=== PATIENT | female | born 1965 | race Caucasian/White ===

== ENCOUNTER 2019-09-15 12:13 | Inpatient (IN) | payer OTHER, SELFPAY ==
[2019-09-15] VITALS (10 sets, daily range): BP systolic 118–153; BP diastolic 64–86; PULSE 86–98; RESP 16–21; TEMP 36.4–36.9; O2SAT 90–99; BMI 39.0
--- NOTE | ~2019-09-15 | CT_ITS ---
EXAMINATION: CTA chest PE protocol DATE: 09/17/2019 10:50 INDICATION: Emphysema and COPD TECHNIQUE: Computed tomography angiography (CTA) of the chest was performed with 100 mL Omnipaque-350 intravenous contrast timed to evaluate the pulmonary arteries. Coronal maximum intensity projection 3D-reconstructions were created by the technologist. The dose-length product (DLP) was 621.26 mGy-cm. Automated exposure control and iterative reconstruction technique were employed. COMPARISON: 09/15/2019 FINDINGS: The pulmonary arteries are well-opacified. No pulmonary embolism is identified. There is mi ld emphysema. No focal airspace opacities are identified. There is dependent atelectasis. A calcified nodule of the left lung is consistent with old granulomatous disease. No pathologically enlarged tho racic lymph nodes are identified. The heart size is normal. There is mild thoracic spondylosis. IMPRESSION: 1. No pulmonary embolism or acute cardiopulmonary abnormality. Reviewed, dictated and finalized at location A. OR BUSINESS ANALYST
--- NOTE | ~2019-09-15 | XR_ITS ---
EXAMINATION: XR chest 2V EXAM DATE: 09/15/2019 12:48 INDICATION: Shortness of breath, upper back pain. Symptoms one month. TECHNIQUE: Frontal and lateral projections of the chest obtained and reviewed. Comparison is made to prior examination from 06/11/2018. FINDINGS: The lungs are clear. There are no pleural effusions. The cardiomediastinal silhouette is within normal limits. There is no pneumothorax suspected. The bones and soft tissues are unremarkab le. IMPRESSION: Normal chest x-ray exam. Reviewed, dictated and finalized at location B. S INSPECTOR IMPRESSION: Normal chest x-ray exam.
--- NOTE | ~2019-09-15 | CT_ITS ---
EXAMINATION:CT chest w con DATE: 09/15/2019 15:58 INDICATION: Shortness of breath. Back pain. TECHNIQUE: Computed tomography (CT) of the chest was performed with 75 mL Omnipaque 350 intravenous c ontrast. Automated exposure control and iterative reconstruction technique were employed. The dose-le ngth product (DLP) was 408.27 mGy-cm. COMPARISON: Chest CT 09/27/2009 FINDINGS: There is mild emphysema. There is mild dependent atelectasis bilaterally. A calcified left lung nodule is consistent with old granulomatous disease. No pleural effusion. The heart size is norm al. No pericardial effusion. There is mild aortic atherosclerosis. There is mild thoracic spondylosis . IMPRESSION: 1. Mild emphysema. Reviewed, dictated and finalized at location A. DOZER OPERATOR IMPRESSION: 1. Mild emphysema.
--- NOTE | 2019-09-15 12:19 | ECG_ITS ---
Measurements Intervals [place] Rate: 91 P: 12 TX: 152 QRS: 22 QRSD: 100 T: 8 QT: 362 QTc: 446 Interpretive Statements SINUS RHYTHM DELAYED PRECORDIAL R/S TRANSITION CONSIDER INFERIOR INFARCT, AGE INDETERMINATE BASELINE ARTIFACT- I, III, AVL, V1 ABNORMAL ECG Electronically Signed On 09-15-2019 16:03:23 WORKERS COMPENSATION CLAIMS ASSISTANT by Alonso Naik D.O.
--- NOTE | 2019-09-15 12:25 | PC.NURSE ---
BS 82.
[2019-09-15 12:26] LABS: Glucose Point of Care 82 (65-105)
[2019-09-15 12:35] LABS: Basophils Absolute Auto 0.1 K/mm3 (0.0-0.1); Basophils Percent Auto 0.6 % (0.2-1.2); Eosinophils Absolute Auto 0.4 K/mm3 (0-0.3); Eosinophils Percent Auto 3.6 % (0-4.4); Hematocrit 36.6 % (37.0-47.0); Hemoglobin 11.6 g/dL (12.0-15.0); Immature Granulocyte Absolute 0.05 K/mm3 (0.00-0.031); Immature Granulocyte Percent A 0.5 % (0-0.5); Lymphocytes Absolute Auto 4.52 K/mm3 (0.9-3.2); Lymphocytes Percent Auto 41.1 % (18.3-44.2); Mean Corpuscular HGB Conc 31.7 g/dl (32-36); Mean Corpuscular Hemoglobin 25.1 pg (26-34); Mean Corpuscular Volume 79.2 fl (80-100); Mean Platelet Volume 9.9 fl (7.4-10.4); Monocytes Absolute Auto 1.3 K/mm3 (0.1-0.6); Monocytes Percent Auto 12.2 % (2.6-8.5); Neutrophils Absolute Auto 4.6 K/mm3 (1.3-6.7); Platelet Count Result 279 k/mm3 (150-375); Red Blood Count 4.62 M/mm3 (4.2-5.4); Red Cell Distribution Width 16.1 % (11.5-14.5)
--- NOTE | 2019-09-15 12:36 | ED.GENADULT ---
HPI - General Adult General Chief complaint: Shortness of Breath/Dyspnea Stated complaint: SOB Time Seen by Provider: 09/15/19 12:23 Source: patient Mode of arrival: EMS Limitations: no limitations History of Present Illness HPI narrative: The pt is a 53 y/o female who presents to the ED, via EMS, with c/o SOB that began about 1 month ago and worsened today. The pt states that she went to see her doctor for ongoing upper back pain yesterday. She was told that she may have pneumonia or a pneumothorax and was prescribed Tramadol and Benzonatate. Her doctor ordered a XR to be done here this afternoon, but the pt came to the ED from work because she was having difficulty breathing. The pt reports sweats, upper back pain, nausea, and vomiting. She states that she has vomited once today. She is not on home O2, does not smoke, and drinks occasionally. She has a PMHx of DM, HTN, HLD, and TIA. The pt is takes ASA after her TIA. MD complaint: SOB Onset (ago): month(s) (began 1 month ago and worsened today) Associated symptoms: other (sweats, upper back pain, nausea, vomiting) Treatments prior to arrival: other (Tramadol, Benzonatate) Related Data Home Medications Medication Instructions Recorded Confirmed alprazolam 2 mg PO HS 09/15/19 09/22/19 aspirin 325 mg PO DAILY 09/15/19 09/22/19 escitalopram oxalate 10 mg PO DAILY 09/15/19 09/22/19 indapamide 2.5 mg PO DAILY 09/15/19 09/22/19 insulin lispro [Humalog U-100 1 unit SUBCUT 6XD 09/15/19 09/22/19 Insulin] losartan 100 mg PO DAILY 09/15/19 09/22/19 metformin 1,000 mg PO BID 09/15/19 09/22/19 pantoprazole 40 mg PO DAILY 09/15/19 09/22/19 Allergies Allergy/AdvReac Type Severity Reaction Status Date / Time meperidine Allergy Severe allergic Verified 09/22/19 09:26 shock Review of Systems Review of Systems: All systems reviewed & are unremarkable except as noted in HPI and below Cardiovascular: Cardiovascular: Reports chest pain and Reports other (sweats) Gastrointestinal: Gastrointestinal: Reports nausea and Reports vomiting Musculoskeletal: Musculoskeletal: Reports back pain (upper) PMFSH Past Medical History Medical History (Updated 09/22/19 @ 07:10 by Chad Ortega APN) Anemia Anxiety COPD with emphysema Coronary artery disease cardiac catheterization 2010 demonstrated mild nonocclusive coronary artery disease Depression Diabetes GERD (gastroesophageal reflux disease) Hyperlipidemia Hypertension Hypothyroid Obesity (BMI 30-39.9) Obstructive sleep apnea TIA (transient ischemic attack) Surgical History Surgical History (Updated 09/15/19 @ 22:43 by Karin Watson DO) History of cardiac cath History of cardiac radiofrequency ablation due to paroxysmal atrial tachycardia in 2000 Family History Family History (Updated 09/15/19 @ 22:43 by Karin Watson DO) Mother History of blood clots Congestive heart failure Diabetes mellitus Father Congestive heart failure Diabetes mellitus Prostate carcinoma Bone cancer Sibling Diabetes mellitus Breast cancer sister Social History Social History (Updated 09/15/19 @ 23:59 by Karin Watson DO) Social History: Code status: Full code. Patient does not have advanced directives. Primary care physician: Dr. Howard Gallego Smoking packs per day: 1 Smoking cigarettes per day: 20.0 Years smoked: 25 Smoking pack-years: 25.00 Smoking status: Former smoker Tobacco type: cigarettes Additional smoking assessment comments: Quit in approximately 2008. Alcohol intake: current Substance use: never Additional living arrangements comments: She lives in [place] with her . 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 Gender identity (if verbalized by the patient): Female Spiritual care concerns: Yes (Congregation) Agree to blood products: Yes Exam Narrative: Exam Narrativ
[2019-09-15 12:45] LABS: Prothrombin Time 12.4 Seconds (11.1-14.7)
[2019-09-15 12:46] LABS: Partial Thromboplastin Time 30.5 SECONDS (22.3-36.8)
[2019-09-15 12:48] LABS: Alanine Aminotransferase 35 U/L (4-35); Albumin Level 4.5 g/dL (3.5-5.1); Alkaline Phosphatase 74 U/L (38-126); Aspartate Amino Transferase 49 U/L (14-36); Bilirubin,Total 0.4 mg/dL (0.2-1.3); Blood Urea Nitrogen 14 mg/dL (7-17); Calcium 9.3 mg/dL (8.4-10.2); Carbon Dioxide 29 mmol/L (22-30); Chloride 98 mmol/L (98-107); D Dimer 0.42 ug/mL (<0.48); Estimated CRCL calculation 127 ml/min; Estimated Glomerular Filt Rate > 60; Glucose 97 mg/dL (65-105); Potassium 3.1 mmol/L (3.4-5.0); Sodium 141 mmol/L (137-145)
[2019-09-15 13:18] LABS: Alveolar/Arterial O2 Gradient 80.5 mmHg; Base Excess ABG 2.5 mEq/l (+/-2.0); Fractional Inspired Oxygen 28 %; HCO3 ABG 27.6 mEq/l (22.0-26.0); Oxygen Content ABG 15.8 %vol (16.0-22.0); Oxygen Saturation ABG 93.2 % (95.0-100.0); Oxyhemoglobin 91.8 % THb (90.0-100.0); PCO2 ABG 44.7 mmHg (35.0-45.0); PO2 ABG 66.4 mmHg (80.0-100.0); PO2 FiO2 Ratio Arterial Blood 2.37 %; Site Drawn LEFT BRACHIAL; Total Hemoglobin 12.2 g/dL (12.0-18.0); pH ABG 7.409 (7.350-7.450)
[2019-09-15 13:19] LABS: Device NASAL CANNULA
--- NOTE | 2019-09-15 15:52 | PC.NURSE ---
PT TO CT SCAN VIA STRETCHER.
[2019-09-15] MEDS: POTASSIUM CHLORIDE 20 MEQ TABLET 40 MEQ PO (16:04)
--- NOTE | 2019-09-15 17:32 | ADMGEN ---
This patient, Susan Stroud, was admitted to Medical Room 345-. Patient/family oriented to hospital policies and general routines including ID bracelet, bed and alarms, visiting hours, pain management, procedures, bathroom and other care routines, personal items, smoking policy, room service/diet, and visiting hours. Valuables list has been completed. Information on how to activate the Rapid Response Team has been discussed. Patient/Family are encouraged to report perceived risks to care and to ask questions if they do not understand what they are told or what they should do.
[2019-09-15] MEDS: methylPREDNISolone SOD SUCC 125 MG VIAL 60 MG IV PUSH (18:48)
[2019-09-15 21:16] LABS: Glucose Point of Care 225 (65-105)
[2019-09-15] MEDS: IPRATROPIUM BR 0.02% INH SOLN 0.5 MG/2.5 ML VIAL INHALATION (21:40)
[2019-09-15] MEDS: ALBUTEROL SULFATE NEB 2.5 MG/0.5 ML INH 5 MG INHALATION (21:41)
--- NOTE | 2019-09-15 22:37 | PM.IMHP ---
H&P: HPI History of Present Illness Chief complaint: shortness of breath Narrative: date and time of patient contact: 09/15/2019 at 10:30 p.m. Susan Stroud is a 53 year old female with a past medical history of type 2 diabetes, hypertension, GERD, and emphysema who presented to the ER via EMS due to sudden worsening of shortness of breath. The patient reports that she has been having pain between her shoulder blades that is worse with deep breathing on and off for the last 2 or 3 weeks. She has had an intermittent dry cough for the last week or so. Over the last several days she has had low-grade temperatures around 99?. She reports generalized body aches for the last several days. She has had postnasal drip but denies any nasal congestion. She had 1 episode of emesis today prior to calling EMS. 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 She has been told before that she has COPD but has never had pulmonary function testing. She has had emphysematous changes noted on her CT scan for several years. She quit smoking around 2002. 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 She denies any bowel or bladder changes. She has been having intermittent headaches. She does have obstructive sleep apnea and had recent sleep study. The patient has black spots in her vision of 1 eye. It is not due to diabetic retinopathy per her report. She is being followed by ophthalmology as outpatient. Review of Systems Review of Systems: Narrative: Except as documented in the HPI, all other systems were reviewed and are negative. [facility] Past Medical History Medical History (Updated 09/16/19 @ 00:04 by Karin Watson DO) Anemia Anxiety COPD with emphysema Coronary artery disease cardiac catheterization 2010 demonstrated mild nonocclusive coronary artery disease Depression Diabetes GERD (gastroesophageal reflux disease) Hyperlipidemia Hypertension Hypothyroid Obesity (BMI 30-39.9) Obstructive sleep apnea TIA (transient ischemic attack) Surgical History Surgical History (Updated 09/15/19 @ 22:43 by Karin Watson DO) History of cardiac cath History of cardiac radiofrequency ablation due to paroxysmal atrial tachycardia in 2000 Family History Family History (Updated 09/15/19 @ 22:43 by Karin Watson DO) Mother History of blood clots Congestive heart failure Diabetes mellitus Father Congestive heart failure Diabetes mellitus Prostate carcinoma Bone cancer Sibling Diabetes mellitus Breast cancer sister Social History Social History (Updated 09/15/19 @ 23:59 by Karin Watson, ) Social History: Code status: Full code. Patient does not have advanced directives. Primary care physician: Dr. Howard Gallego Smoking packs per day: 1 Smoking cigarettes per day: 20.0 Years smoked: 25 Smoking pack-years: 25.00 Smoking status: Former smoker Tobacco type: cigarettes Additional smoking assessment comments: Quit in approximately 2008. Alcohol intake: current Alcohol use details: Rare alcohol use. Substance use: never Living arrangements: with family Additional living arrangements comments: She lives in [place] with her . 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 Gender identity (if verbalized by the patient): Female Spiritual care concerns: Yes (Sikh) Agree to blood products: Yes Meds Home Medications and Allergies Home Medications Medication Instructions Recorded Confirmed Type dulaglutide 1.5 mg/0.5 mL 1.5 mg SUB-Q WEEKLY 90 Days #6.5 ml 08/10/19 09/15/19 Rx subcutaneous pen injector alprazolam 1 mg PO BID 09/15/19 09/15/19 History aspirin 325 mg PO DAILY 09/15/19 09/15/19 History escitalopram oxalate 10 mg PO DAILY 09/15/19
[2019-09-16] VITALS (14 sets, daily range): BP systolic 114–142; BP diastolic 53–72; PULSE 98–115; RESP 16–18; TEMP 36.1–36.6; O2SAT 90–96
[2019-09-16] MEDS: ACETAMINOPHEN 325 MG TABLET 650 MG PO ×2 (00:12→21:13)
[2019-09-16] MEDS: methylPREDNISolone SOD SUCC 125 MG VIAL 60 MG IV PUSH ×4 (00:13→21:05)
[2019-09-16] MEDS: ALPRAZOLAM 0.5 MG TABLET 1 MG PO ×2 (00:32→16:40)
[2019-09-16 00:42] LABS: Influenza Control Positive
[2019-09-16] MEDS: IPRATROPIUM BR 0.02% INH SOLN 0.5 MG/2.5 ML VIAL INHALATION ×4 (03:25→19:50)
[2019-09-16] MEDS: ALBUTEROL SULFATE NEB 2.5 MG/0.5 ML INH 5 MG INHALATION ×2 (03:25→08:52)
[2019-09-16 05:43] LABS: Hematocrit 34.9 % (37.0-47.0); Hemoglobin 11.1 g/dL (12.0-15.0); Mean Corpuscular HGB Conc 31.8 g/dl (32-36); Mean Corpuscular Hemoglobin 25.1 pg (26-34); Mean Platelet Volume 9.6 fl (7.4-10.4); Platelet Count Result 261 k/mm3 (150-375); Red Blood Count 4.42 M/mm3 (4.2-5.4); Red Cell Distribution Width 15.9 % (11.5-14.5); White Blood Count 7.5 K/mm3 (4.5-10.0)
[2019-09-16 05:48] LABS: Blood Urea Nitrogen 13 mg/dL (7-17); Carbon Dioxide 23 mmol/L (22-30); Chloride 96 mmol/L (98-107); Estimated CRCL calculation 152 ml/min; Estimated Glomerular Filt Rate > 60; Glucose 337 mg/dL (65-105); Potassium 3.6 mmol/L (3.4-5.0); Sodium 134 mmol/L (137-145)
[2019-09-16 08:15] LABS: Glucose Point of Care 358 (65-105)
[2019-09-16] MEDS: ENOXAPARIN 40 MG/0.4 ML SYRINGE SUB-Q (08:26)
[2019-09-16] MEDS: ASPIRIN 325 MG TABLET PO (08:26)
[2019-09-16] MEDS: ESCITALOPRAM OXALATE 10 MG TABLET PO (08:27)
[2019-09-16] MEDS: LOSARTAN POTASSIUM 100 MG TABLET PO (08:27)
[2019-09-16] MEDS: SIMVASTATIN 20 MG TABLET PO (08:27)
[2019-09-16] MEDS: PANTOPRAZOLE 40 MG TABLET PO (08:28)
[2019-09-16] MEDS: INDAPAMIDE 2.5 MG TABLET PO (08:28)
[2019-09-16] MEDS: metFORMIN HCL 500 MG TABLET 1000 MG PO ×2 (08:28→16:39)
--- NOTE | 2019-09-16 10:00 | ECG_ITS ---
Measurements Intervals [place] Rate: 113 P: 59 ND: 168 QRS: 35 QRSD: 102 T: -1 QT: 347 QTc: 477 Interpretive Statements SINUS TACHYCARDIA NONSPECIFIC ST & T-WAVE ABNORMALITY- INF/LAT LEADS ABNORMAL ECG Electronically Signed On 09-16-2019 11:04:52 ACCOUNTING AUDITOR by Alonso Naik D.O.
[2019-09-16 10:40] LABS: D Dimer 0.55 ug/mL (<0.48)
[2019-09-16 10:51] LABS: Troponin I < 0.012 ng/mL (0.000-0.034)
[2019-09-16] MEDS: INSULIN ASPART (*BKC) 100 UNITS/ML SUB-Q ×2 (12:02→17:23)
[2019-09-16 12:07] LABS: Glucose Point of Care 361 (65-105)
--- NOTE | 2019-09-16 13:51 | PM.IMPN ---
Progress Note: A&P Assessment and Plan (1) COPD exacerbation: Code(s): J44.1 - Chronic obstructive pulmonary disease with (acute) exacerbation Status: Acute Assessment and Plan: Patient has not had formal PFTs but x-rays demonstrate findings consistent with emphysema and she has been told in the past that she has COPD. Patient likely has an exacerbation of her chronic lung disease due to upper respiratory tract infection. change albuterol to xopenox as pt having sinus tacycardia. Ddimers mildly elevated. If sinus tacycardia continues i will order CTA to rule out PE in the morning (2) Acute respiratory failure with hypoxia: Code(s): J96.01 - Acute respiratory failure with hypoxia Status: Acute Assessment and Plan: Likely due to acute exacerbation of chronic lung disease. Will continue steroids but decrease the frequency to q.8 hours. Will continue scheduled nebulizer treatments. (3) Acute hypokalemia: Code(s): E87.6 - Hypokalemia Status: Acute Assessment and Plan: The patient received IV potassium in the ER. watch potassium levels. (4) Diabetes mellitus type 2, insulin dependent: Code(s): E11.9 - Type 2 diabetes mellitus without complications; Z79.4 - [facility] (current) use of insulin Status: Acute Assessment and Plan: Will continue the patient's home insulin pump with Humalog. Sees dope sprayer doctor nearby. Subjective Date/time seen: 09/16/19 13:51 Interval history: 53 year old female with a past medical history of type 2 diabetes, hypertension, GERD, and emphysema who presented to the ER via EMS due to sudden worsening of shortness of breath. The patient reports that she has been having pain between her shoulder blades that is worse with deep breathing on and off for the last 2 or 3 weeks. She has had an intermittent dry cough for the last week. Pt had a sudden SOB with tachycardia, trop ordered which was negative, EKG nil acute. CXR was NL, CT chest showed mild emphysema. If sinus tacycardia continues i will order CTA to rule out PE in the morning Review of Systems Respiratory: Respiratory: Reports dyspnea Comments: sudden Exam Narrative: Exam Narrative: PHYSICAL EXAM: General: obese HEENT: Mucous membranes a Neck: Large neck circumference Respiratory: Markedly decreased breath sounds bilaterally, no increased work of breathing Cardiovascular: Mildly tachycardic, normal S1-S2, no murmurs, 2+ bilateral radial and pedal pulses Gastrointestinal: Obese, nontender, normoactive bowel sounds Skin: Non jaundice, warm to touch, no pallor Extremities: No clubbing, cyanosis or edema, moves all extremities equally Neurological: Alert and oriented, speech is clear, cranial nerves 2-12 appear to be grossly intact Psychiatric: Appropriate mood and affect, pleasant and cooperative Const: General: in distress Objective Data Vital Signs Vital Signs: Vital Signs - 24 hr 09/15/19 14:08 09/15/19 14:51 09/15/19 16:11 Temperature Pulse Rate 86 90 95 Respiratory Rate 18 17 21 H Blood Pressure 128/86 118/69 127/70 Pulse Oximetry 99 98 97 09/15/19 17:16 09/15/19 17:30 09/15/19 21:43 Temperature 36.9 C Pulse Rate 89 95 94 Respiratory Rate 16 20 16 Blood Pressure 151/86 H 153/80 H Pulse Oximetry 98 97 92 09/15/19 21:50 09/15/19 22:00 09/16/19 03:26 Temperature 36.4 C L Pulse Rate 92 98 98 Respiratory Rate 16 16 16 Blood Pressure 124/64 Pulse Oximetry 92 09/16/19 06:00 09/16/19 08:53 09/16/19 08:56 Temperature 36.1 C L Pulse Rate 101 H Respiratory Rate 16 Blood Pressure 114/53 L Pulse Oximetry 96 96 90 09/16/19 08:58 09/16/19 08:59 09/16/19 09:08 Temperature Pulse Rate 104 H 112 H Respiratory Rate 16 16 Blood Pressure Pulse Oximetry 95 09/16/19 09:56 Temperature 36.3 C L Pulse Rate 115 H Respiratory Rate 16 Blood Pressure 138/68 Pulse Oximetry 96 Intake/Output Inta
[2019-09-16] MEDS: LEVALBUTEROL NEB 1.25 MG/3 ML 0.63 MG INHALATION ×2 (14:38→19:50)
[2019-09-16 17:14] LABS: Glucose Point of Care 343 (65-105)
[2019-09-16 21:03] LABS: Glucose Point of Care 316 (65-105)
[2019-09-17] VITALS (12 sets, daily range): BP systolic 112–146; BP diastolic 62–81; PULSE 72–121; RESP 16–24; TEMP 36.1–36.7; O2SAT 95–98
[2019-09-17] MEDS: LEVALBUTEROL NEB 1.25 MG/3 ML 0.63 MG INHALATION ×3 (01:05→14:47)
[2019-09-17] MEDS: IPRATROPIUM BR 0.02% INH SOLN 0.5 MG/2.5 ML VIAL INHALATION ×3 (01:05→14:48)
[2019-09-17] MEDS: methylPREDNISolone SOD SUCC 125 MG VIAL 60 MG IV PUSH ×3 (05:55→21:26)
[2019-09-17 08:40] LABS: Glucose Point of Care 282 (65-105)
[2019-09-17] MEDS: INSULIN ASPART (*BKC) 100 UNITS/ML SUB-Q ×2 (08:40→18:00)
[2019-09-17] MEDS: SIMVASTATIN 20 MG TABLET PO (08:45)
[2019-09-17] MEDS: PANTOPRAZOLE 40 MG TABLET PO (08:45)
[2019-09-17] MEDS: INDAPAMIDE 2.5 MG TABLET PO (08:45)
[2019-09-17] MEDS: ASPIRIN 325 MG TABLET PO (08:45)
[2019-09-17] MEDS: ESCITALOPRAM OXALATE 10 MG TABLET PO (08:45)
[2019-09-17] MEDS: metFORMIN HCL 500 MG TABLET 1000 MG PO ×2 (08:45→18:00)
[2019-09-17] MEDS: ENOXAPARIN 40 MG/0.4 ML SYRINGE SUB-Q (08:45)
[2019-09-17] MEDS: LOSARTAN POTASSIUM 100 MG TABLET PO (08:45)
[2019-09-17 11:51] LABS: Glucose Point of Care 445 (65-105)
[2019-09-17] MEDS: INSULIN ASPART (*BKC) 100 UNITS/ML 10 UNITS SUB-Q (12:07)
--- NOTE | 2019-09-17 14:48 | PM.IMPN ---
Progress Note: A&P Assessment and Plan (1) Diabetes mellitus type 2, insulin dependent: Code(s): E11.9 - Type 2 diabetes mellitus without complications; Z79.4 - [facility] (current) use of insulin Status: Acute Assessment and Plan: Will continue the patient's home insulin pump with Humalog. Sees developmental education instructor doctor nearby. (2) COPD exacerbation: Code(s): J44.1 - Chronic obstructive pulmonary disease with (acute) exacerbation Status: Acute Assessment and Plan: Patient has not had formal PFTs but x-rays demonstrate findings consistent with emphysema and she has been told in the past that she has COPD. Patient likely has an exacerbation of her chronic lung disease due to upper respiratory tract infection. change albuterol to xopenox as pt having sinus tacycardia. Ddimers mildly elevated. Sinus tacycardia continuing EKG showing ST, CTA is negative for PE (3) Acute respiratory failure with hypoxia: Code(s): J96.01 - Acute respiratory failure with hypoxia Status: Acute Assessment and Plan: Likely due to acute exacerbation of chronic lung disease. Will continue steroids but decrease the frequency to q.8 hours. Will make nebulizer treatments, PRN. (4) Acute hypokalemia: Code(s): E87.6 - Hypokalemia Status: Acute Assessment and Plan: The patient received IV potassium in the ER. watch potassium levels. Subjective Date/time seen: 09/17/19 14:48 Interval history: 53 year old female with a past medical history of type 2 diabetes, hypertension, GERD, and emphysema who presented to the ER via EMS due to sudden worsening of shortness of breath. The patient reports that she has been having pain between her shoulder blades that is worse with deep breathing on and off for the last 2 or 3 weeks. She has had an intermittent dry cough for the last week. Pt had a sudden SOB with tachycardia, trop ordered which was negative, EKG nil acute. CXR was NL, CT chest showed mild emphysema. Pt still in sinus tacycardia CTA is negative, I will order metoprolol for patient and cut back with breathing treatments Review of Systems Review of Systems: All systems reviewed & are unremarkable except as noted in HPI and below Cardiovascular: Cardiovascular: Denies chest pain Respiratory: Respiratory: Reports cough and Reports dyspnea Exam Narrative: Exam Narrative: General: Obese Heent: Mucous membranes Neck: Large neck circumference Respiratory: Markedly decreased breath sounds bilaterally, no increased work of breathing Cardiovascular: Mildly tachycardic, normal S1-S2, no murmurs, 2+ bilateral radial and pedal pulses Gastrointestinal: Obese, nontender, normoactive bowel sounds Skin: Non jaundice, warm to touch, no pallor Extremities: No clubbing, cyanosis or edema, moves all extremities equally Neurological: Alert and oriented, speech is clear, cranial nerves 2-12 appear to be grossly intact Psychiatric: Appropriate mood and affect, pleasant and cooperative Objective Data Vital Signs Vital Signs: Vital Signs - 24 hr 09/16/19 14:52 09/16/19 19:50 09/16/19 20:01 Temperature Pulse Rate 112 H 110 H 111 H Respiratory Rate 16 16 16 Blood Pressure Pulse Oximetry 93 09/16/19 20:38 09/17/19 01:05 09/17/19 01:21 Temperature 36.3 C L Pulse Rate 114 H 104 H 102 H Respiratory Rate 16 16 16 Blood Pressure 133/60 Pulse Oximetry 94 09/17/19 05:53 09/17/19 09:42 09/17/19 09:54 Temperature 36.1 C L Pulse Rate 98 111 H 111 H Respiratory Rate 17 16 20 Blood Pressure 112/66 Pulse Oximetry 98 96 09/17/19 10:19 09/17/19 10:25 Temperature 36.1 C L Pulse Rate 121 H Respiratory Rate 24 H Blood Pressure 146/65 H Pulse Oximetry 95 96 Intake/Output Intake/Output: Intake & Output 09/14/19 09/15/19 09/16/19 09/17/19 23:59 23:59 23:59 23:59 Intake Total 300 1320 1360 Output Total 2400 1850 Balance 720 -0084 -731 Meds/Results
[2019-09-17 17:48] LABS: Glucose Point of Care 368 (65-105)
[2019-09-17] MEDS: ALPRAZOLAM 0.5 MG TABLET 1 MG PO (17:59)
[2019-09-17] MEDS: METOPROLOL TARTRATE 12.5 MG TABLET PO (21:27)
[2019-09-17 22:18] LABS: Glucose Point of Care 338 (65-105)
[2019-09-18] VITALS (9 sets, daily range): BP systolic 140–162; BP diastolic 63–81; PULSE 80–90; RESP 14–18; TEMP 36.4–36.6; O2SAT 93–97
[2019-09-18] MEDS: methylPREDNISolone SOD SUCC 125 MG VIAL 60 MG IV PUSH (05:38)
[2019-09-18 06:05] LABS: Hematocrit 33.7 % (37.0-47.0); Hemoglobin 10.9 g/dL (12.0-15.0); Mean Corpuscular HGB Conc 32.3 g/dl (32-36); Mean Corpuscular Hemoglobin 25.2 pg (26-34); Mean Corpuscular Volume 77.8 fl (80-100); Platelet Count Result 297 k/mm3 (150-375); Red Blood Count 4.33 M/mm3 (4.2-5.4); Red Cell Distribution Width 16.3 % (11.5-14.5); White Blood Count 11.7 K/mm3 (4.5-10.0)
[2019-09-18 06:28] LABS: Blood Urea Nitrogen 21 mg/dL (7-17); Calcium 9.1 mg/dL (8.4-10.2); Carbon Dioxide 27 mmol/L (22-30); Chloride 93 mmol/L (98-107); Estimated CRCL calculation 152 ml/min; Estimated Glomerular Filt Rate > 60; Glucose 241 mg/dL (65-105); Sodium 133 mmol/L (137-145)
[2019-09-18] MEDS: INSULIN ASPART (*BKC) 100 UNITS/ML SUB-Q ×2 (09:18→12:25)
[2019-09-18] MEDS: METOPROLOL TARTRATE 12.5 MG TABLET PO ×2 (09:22→21:22)
[2019-09-18] MEDS: ENOXAPARIN 40 MG/0.4 ML SYRINGE SUB-Q (09:23)
[2019-09-18] MEDS: ASPIRIN 325 MG TABLET PO (09:23)
[2019-09-18] MEDS: SIMVASTATIN 20 MG TABLET PO (09:24)
[2019-09-18] MEDS: PANTOPRAZOLE 40 MG TABLET PO (09:24)
[2019-09-18] MEDS: INDAPAMIDE 2.5 MG TABLET PO (09:24)
[2019-09-18] MEDS: LOSARTAN POTASSIUM 100 MG TABLET PO (09:24)
[2019-09-18] MEDS: ESCITALOPRAM OXALATE 10 MG TABLET PO (09:24)
[2019-09-18] MEDS: metFORMIN HCL 500 MG TABLET 1000 MG PO ×2 (09:25→18:02)
[2019-09-18 09:34] LABS: Glucose Point of Care 271 (65-105)
[2019-09-18 12:30] LABS: Glucose Point of Care 339 (65-105)
--- NOTE | 2019-09-18 13:16 | PM.IMPN ---
Progress Note: A&P Assessment and Plan (1) Diabetes mellitus type 2, insulin dependent: Code(s): E11.9 - Type 2 diabetes mellitus without complications; Z79.4 - [facility] (current) use of insulin Status: Acute Assessment and Plan: Will continue the patient's home insulin pump with Humalog. Sees bleach packer doctor nearby. (2) COPD exacerbation: Code(s): J44.1 - Chronic obstructive pulmonary disease with (acute) exacerbation Status: Acute Assessment and Plan: Patient has not had formal PFTs but x-rays demonstrate findings consistent with emphysema and she has been told in the past that she has COPD. Patient likely has an exacerbation of her chronic lung disease due to upper respiratory tract infection. change albuterol to xopenox as pt having sinus tacycardia. Ddimers mildly elevated. CTA is negative for PE. ST corrected today, HR is good. pt wants to see pulmology wean off iv steroids and oxygen hopeful discharge bigg. Pt adviced to ambulate. (3) Acute respiratory failure with hypoxia: Code(s): J96.01 - Acute respiratory failure with hypoxia Status: Acute Assessment and Plan: Likely due to acute exacerbation of chronic lung disease. Will continue steroids but decrease the frequency to q.8 hours. Will make nebulizer treatments, PRN. (4) Acute hypokalemia: Code(s): E87.6 - Hypokalemia Status: Resolved Assessment and Plan: The patient received IV potassium in the ER. Potassium levels have corrected. Subjective Date/time seen: 09/18/19 13:16 Interval history: 53 year old female with a past medical history of type 2 diabetes, hypertension, GERD, and emphysema who presented to the ER via EMS due to sudden worsening of shortness of breath. The patient reports that she has been having pain between her shoulder blades that is worse with deep breathing on and off for the last 2 or 3 weeks. She has had an intermittent dry cough for the last week. Pt had a sudden SOB with tachycardia, trop ordered which was negative, EKG nil acute. CXR was NL, CT chest showed mild emphysema. CTA is negative, I will order metoprolol for patient and cut back with breathing treatments to correct sinus tach. HR is normal today, pt still very concerned about her breathing, wants to see pulmology specialist Review of Systems Review of Systems: All systems reviewed & are unremarkable except as noted in HPI and below Respiratory: Respiratory: Reports dyspnea and Reports dyspnea on exertion Exam Narrative: Exam Narrative: General: Obese Heent: Mucous membranes Neck: Large neck circumference Respiratory: Markedly decreased breath sounds bilaterally, no increased work of breathing Cardiovascular: Mildly tachycardic, normal S1-S2, no murmurs, 2+ bilateral radial and pedal pulses Gastrointestinal: Obese, nontender, normoactive bowel sounds Skin: Non jaundice, warm to touch, no pallor Extremities: No clubbing, cyanosis or edema, moves all extremities equally Neurological: Alert and oriented, speech is clear, cranial nerves 2-12 appear to be grossly intact Psychiatric: Appropriate mood and affect, pleasant and cooperative Const: General: in distress Objective Data Vital Signs Vital Signs: Vital Signs - 24 hr 09/17/19 14:00 09/17/19 14:50 09/17/19 15:04 Temperature 36.7 C Pulse Rate 72 107 H 88 Respiratory Rate 18 18 16 Blood Pressure 142/62 H Pulse Oximetry 97 09/17/19 21:27 09/17/19 22:00 09/18/19 05:24 Temperature 36.3 C L 36.4 C L Pulse Rate 86 95 88 Respiratory Rate 18 14 Blood Pressure 145/81 H 143/81 H Pulse Oximetry 96 97 09/18/19 08:00 09/18/19 09:22 09/18/19 09:55 Temperature Pulse Rate 88 88 Respiratory Rate 14 Blood Pressure Pulse Oximetry 97 96 09/18/19 10:00 09/18/19 10:23 Temperature Pulse Rate Respiratory Rate Blood Pressure Pulse Oximetry 96 96 Intake/Output Intake/Output: Intake & Output 01
--- NOTE | 2019-09-18 13:35 | PM.PNPUL ---
Progress Note: A&P Assessment and Plan (1) COPD exacerbation: Code(s): J44.1 - Chronic obstructive pulmonary disease with (acute) exacerbation Status: Acute Assessment and Plan: Add COPD controller meds before discharge-->Symbicort 160/4.5 wean steroids, out patient PFTs in 6-8 weeks after discharge. Alpha-1 anti trypsin panel. 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 Will be ready to go home tomorrow. (2) Acute respiratory failure with hypoxia: Code(s): J96.01 - Acute respiratory failure with hypoxia Status: Acute Assessment and Plan: Will check Home O2 evaluation before discharge. (3) Obstructive sleep apnea: Code(s): G47.33 - Obstructive sleep apnea (adult) (pediatric) Status: Acute Assessment and Plan: Recent diagnosis; mild; she decided to lose weight and not be treated at this time. Subjective Date/time seen: 09/18/19 13:35 Thank you for the consult. Please see dictation# [id number]. Objective Data Vital Signs Vital Signs: Vital Signs - 24 hr 09/17/19 14:00 09/17/19 14:50 09/17/19 15:04 Temperature 36.7 C Pulse Rate 72 107 H 88 Respiratory Rate 18 18 16 Blood Pressure 142/62 H Pulse Oximetry 97 09/17/19 21:27 09/17/19 22:00 09/18/19 05:24 Temperature 36.3 C L 36.4 C L Pulse Rate 86 95 88 Respiratory Rate 18 14 Blood Pressure 145/81 H 143/81 H Pulse Oximetry 96 97 09/18/19 08:00 09/18/19 09:22 09/18/19 09:55 Temperature Pulse Rate 88 88 Respiratory Rate 14 Blood Pressure Pulse Oximetry 97 96 09/18/19 10:00 09/18/19 10:23 Temperature Pulse Rate Respiratory Rate Blood Pressure Pulse Oximetry 96 96 Intake/Output Intake/Output: Intake & Output 09/15/19 09/16/19 09/17/19 09/18/19 23:59 23:59 23:59 23:59 Intake Total 300 1320 3340 1130 Output Total 5247 7600 9164 Balance 596 -4091 -110 420 Meds/Results Medications: Active Medications Generic Name Dose Route Start Last Admin Trade Name Freq PRN Reason Stop Dose Admin Acetaminophen 650 mg 09/15/19 23:55 09/16/19 21:13 Tylenol Tablet PO 650 mg Q4H PRN Administration Pain Rated 1-3 Alprazolam 2 mg 09/18/19 21:[address] Aspirin 325 mg 09/16/19 09:00 09/18/19 09:23 Aspirin PO [address] Administration Dextrose 12.5 gm 09/15/19 22:48 Dextrose 50% Syringe IV PUSH PRN PRN Hypoglycemia Protocol Enoxaparin Sodium 40 mg 09/16/19 09:00 09/18/19 09:23 Lovenox SUB-Q [address] Administration Escitalopram Oxalate 10 mg 09/16/19 09:00 09/18/19 09:24 Lexapro PO [address] Administration Glucagon 1 mg 09/15/19 22:48 Glucagon For Inj IM PRN PRN Hypoglycemia Protocol Glucose 15 gm 09/15/19 22:48 Glutose 15 PO PRN PRN Hypoglycemia Protocol Dextrose 1,000 mls @ 100 mls/hr 09/15/19 22:48 Dextrose 5% 1,000 Ml IVPB PRN PRN Hypoglycemia Protocol Indapamide 2.5 mg 09/16/19 09:00 09/18/19 09:24 Lozol PO 2.[address] Administration Insulin Aspart 3 - 6 units 09/16/19 08:00 09/18/19 12:25 Novolog SUB-Q [address] Administration Protocol Levalbuterol HCl 0.63 mg 09/17/19 14:56 Xopenex 1.25 Mg/3 Ml INHALATION Q6HRT PRN sob Losartan Potassium 100 mg 09/16/19 09:00 09/18/19 09:24 Cozaar PO [address] Administration Metformin HCl 1,000 mg 09/16/19 09:00 09/18/19 09:25 Glucophage PO 1,[address] Administration Methylprednisolone Sodium Succinate 30 mg 09/18/19 14:00 Solu-Medrol IV PUSH Q8HR LANE
[2019-09-18] MEDS: methylPREDNISolone SOD SUCC 40 MG VIAL 30 MG IV PUSH ×2 (14:57→21:22)
[2019-09-18 17:45] LABS: Glucose Point of Care 170 (65-105)
[2019-09-18] MEDS: ALPRAZOLAM 0.5 MG TABLET 2 MG PO (21:22)
[2019-09-18 21:44] LABS: Glucose Point of Care 221 (65-105)
[2019-09-19 06:00] VITALS: BP 130/61; PULSE 73; RESP 14; TEMP 36.2; O2SAT 97
[2019-09-19] MEDS: methylPREDNISolone SOD SUCC 40 MG VIAL 30 MG IV PUSH (06:29)
[2019-09-19 07:25] LABS: Glucose Point of Care 212 (65-105)
[2019-09-19 07:31] VITALS: PULSE 73; RESP 14; O2SAT 97
[2019-09-19 07:44] VITALS: O2SAT 97
[2019-09-19] MEDS: metFORMIN HCL 500 MG TABLET 1000 MG PO (09:01)
[2019-09-19 09:02] VITALS: PULSE 62
[2019-09-19] MEDS: ENOXAPARIN 40 MG/0.4 ML SYRINGE SUB-Q (09:02)
[2019-09-19] MEDS: PANTOPRAZOLE 40 MG TABLET PO (09:02)
[2019-09-19] MEDS: SIMVASTATIN 20 MG TABLET PO (09:02)
[2019-09-19] MEDS: INDAPAMIDE 2.5 MG TABLET PO (09:02)
[2019-09-19] MEDS: LOSARTAN POTASSIUM 100 MG TABLET PO (09:02)
[2019-09-19] MEDS: ASPIRIN 325 MG TABLET PO (09:02)
[2019-09-19] MEDS: METOPROLOL TARTRATE 12.5 MG TABLET PO (09:02)
[2019-09-19] MEDS: ESCITALOPRAM OXALATE 10 MG TABLET PO (09:03)
[2019-09-19 11:10] VITALS: O2SAT 97
[2019-09-19 11:15] VITALS: PULSE 91; O2SAT 96
--- NOTE | 2019-09-19 11:21 | HOMEO2EVAL ---
Home Oxygen Evaluation RC: Home Oxygen (O2) Evaluation Start: 09/18/19 14:37 Freq: ONCE Status: Active Protocol: RPE Activity Type Activity Date Activity User E-Sign Co-Sign Detail Recorded Client Recorded Date Recorded By Document 09/19/19 11:10 CLC [email or web address] 09/19/19 11:21 CLC Document 09/19/19 11:15 CLC [email or web address] 09/19/19 11:21 CLC 09/19/19 09/19/19 11:10 11:15 Home O2 Evaluation Test Phase Resting Exercise Oxygen Delivery Room Air Room Air Pulse Oximetry (90-100 %) 97 96 Pulse Rate (60-100 beats/min) 91 Activity Tolerance Excellent Rate of Perceived Exertion (PE) 6 Very, very light Ambulation Distance (feet) 100 Treatment Charges O2 Evaluation
[2019-09-19 11:43] LABS: Glucose Point of Care 190 (65-105)
--- NOTE | 2019-09-19 12:32 | PM.DS ---
DS: Diagnosis Admitting Diagnosis Admitting Diagnosis: Chronic obstructive pulmonary disease with (acute) exacerbation Discharge Diagnosis (1) Diabetes mellitus type 2, insulin dependent: Code(s): E11.9 - Type 2 diabetes mellitus without complications; Z79.4 - group home (current) use of insulin Status: Acute Assessment and Plan: Will continue the patient's home insulin pump with Humalog. Sees termite treater helper doctor nearby. (2) COPD exacerbation: Code(s): J44.1 - Chronic obstructive pulmonary disease with (acute) exacerbation Status: Resolved Assessment and Plan: Patient has not had formal PFTs but x-rays demonstrate findings consistent with emphysema and she has been told in the past that she has COPD. Patient likely has an exacerbation of her chronic lung disease due to upper respiratory tract infection. change albuterol to xopenox as pt having sinus tacycardia. Ddimers mildly elevated. CTA is negative for PE. ST corrected today, HR is good. pt wants to see pulmology started on symbicort inhaler, will have formal PFTS in clinic later, folow up with Radhames. Pt to complete steroid taper and use symbicort at home to help. (3) Acute respiratory failure with hypoxia: Code(s): J96.01 - Acute respiratory failure with hypoxia Status: Resolved Assessment and Plan: Likely due to acute exacerbation of chronic lung disease. Will continue steroids but decrease the frequency to q.8 hours. Will make nebulizer treatments, PRN, transition to symbicort at home, pt does not qualify for home oxygen. (4) Acute hypokalemia: Code(s): E87.6 - Hypokalemia Status: Resolved Assessment and Plan: The patient received IV potassium in the ER. Potassium levels have corrected. (5) Sinus tachycardia: Code(s): R00.0 - Tachycardia, unspecified Status: Resolved Assessment and Plan: Corrected with low dose beta blockers. ST maybe related to anxiety. pt has a history of anxiety problems and is already on anxiolytic. DS: Summary Time Spent with Patient Time attestation: Total time spent providing and/or coordinating discharge services:38 minutes on day of discharge Exam Narrative: Exam Narrative: General: Obese Heent: Normocephalic Neck: Large neck circumference Respiratory: Clear, no increased work of breathing Cardiovascular: Normal S1-S2, no murmurs, 2+ bilateral radial and pedal pulses Gastrointestinal: Obese, nontender, normoactive bowel sounds Skin: Non jaundice, warm to touch, no pallor Extremities: No clubbing, cyanosis or edema, moves all extremities equally Neurological: Alert and oriented, speech is clear, cranial nerves 2-12 appear to be grossly intact Psychiatric: Appropriate mood and affect, pleasant and cooperative DS: Data Data Completed and Pending Labs on day of discharge: Labs from last 24 hours 09/19/19 09/19/19 09/18/19 11:00 07:19 21:29 POC Capillary Glucose 190 H 212 H 221 H 09/18/19 17:03 POC Capillary Glucose 170 H Discharge Plan Discharge Attending physician on discharge: Merlene Fletcher Consulting providers: Lizy Truong Discharging Clinician: Merlene Fletcher Anticipated Discharge Date/Time: 09/19/19 12:32 Patient Disposition: Home, Self-Care Activity: as tolerated Diet: diabetic Patient Instructions: Antibiotic Form, Pain Management (DC), Emphysema (DC) Stand Alone Forms: General Discharge Information Follow-up/Referrals: Howard Gallego MD [Primary Care Provider] - Lizy Truong MD [Physician] - Discharge Medications: New prednisone 10 mg Tablets,Dose Pack See Taper mg PO DAILY 12 Days Qty: 42 RF: 0 simvastatin 20 mg Tablet 20 mg PO QAM Qty: 60 RF: 0 metoprolol tartrate 25 mg tablet 12.5 mg PO Q12HR 30 Days Qty: 30 RF: 0 Symbicort 160-4.5 mcg/actuation Hfa Aerosol Inhaler 2 puff inhalation Q12HRT Qty: 1 RF: 0 metoprolol
--- NOTE | 2019-09-19 13:14 | PC.NURSE ---
Patient request flu vaccine.
--- NOTE | 2019-09-20 06:26 | CONS_ITS ---
DATE OF CONSULTATION: 09/18/2019 REASON FOR CONSULTATION: COPD exacerbation. CONSULTING PHYSICIAN: Merlene Fletcher M.D. HISTORY: This is a 53-year-old female with a known history of COPD since 18 years ago. She was a smoker from age 22 to age 38 up to a pack per day, so a 16-pack year history. 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 She was sick last week, took off work September 09 and because she had intense mid thoracic back pain, but was also very tired and was feeling short of breath. This was getting worse and deep breathing really exacerbated. She had a dry cough. She was also experiencing a low-grade temp around 99 degrees and body aches. She did not feel well on the day of September 15. She went to the school nurse who checked her saturation, which was 82% on room air. She has never had a significant respiratory infection. She is not on COPD meds at home. She has not been around any sick individuals specifically, but she does work with students. She has not had a productive cough, hemoptysis, nausea, vomiting, or diarrhea. She does have diabetes, which is well controlled. The patient does not take flu shots by her own choice. She has never had a significant pneumonia. There is no history of lung disease in her family. Her and her sister are present at the bedside and assist with the history. ALLERGIES: MEPERIDINE. HOME MEDICATIONS: 1. Simvastatin 25 mg a day. 2. Pantoprazole 40 mg a day. 3. Metformin 1000 mg b.i.d. 4. Losartan 100 mg a day. 5. Lispro insulin as instructed. 6. Indapamide 2.5 mg daily. 7. Escitalopram 10 mg daily. 8. Dulaglutide 1.5 mg Injector Pen subcutaneous weekly. 9. Aspirin 325 mg a day. 10. Xanax 2.5 mg p.o. q.h.s. PAST MEDICAL HISTORY: 1. COPD diagnosed 18 years ago, not on treatment. 2. Nonobstructive coronary artery disease. 3. Arrhythmia with ablation many years ago. 4. Gastroesophageal reflux disease. 5. Diabetes mellitus, on insulin. 6. Hyperlipidemia. 7. Hypertension. 8. Hypothyroidism. 9. Mild obstructive sleep apnea syndrome with recent sleep study. 10. Transient ischemic attack x3, which happened prior to her left carpal tunnel surgery, which was canceled. 11. Anxiety. 12. Anemia. SURGICAL HISTORY: 1. Cardiac cath, cardiac radiofrequency ablation for paroxysmal atrial tachycardia 2000. 2. Right carpal tunnel repair for hand pain and arthritis. SOCIAL HISTORY: . Three biologic children. 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 She smoked 1-pack per day for 16 years. Quit at age 38. She does not chew tobacco, vape, or use marijuana. Rare alcohol. FAMILY HISTORY: Father at age 82 of prostate cancer. Mother is 88 in good health. Her 3 children are in good health. She has 1 brother and 2 sisters. There is no family history of asthma or lung disease. REVIEW OF SYSTEMS: She has been trying to lose weight. She has very rare ankle swelling. The remainder of the 14-point review of systems is negative. PHYSICAL EXAMINATION: VITAL SIGNS: Height 1.6 m, weight 100 kg, BMI 39.1. Temperature 36.5, pulse 90, respirations 18, blood pressure 140/63, saturation 93% on room air. GENERAL: This is a pleasant 53-year-old female, in no acute distress. HEENT: Pupils equal. Face symmetric. No sinus tenderness. NECK: Supple without lymphadenopathy. RESPIRATORY SYSTEM: Equal clear breath sounds. CARDIOVASCULAR SYSTEM: Regular S1, S2 without a murmur or gallop. GASTROINTESTINAL: Active bowel sounds. Soft, nontender. EXTREMITIES: No peripheral edema, clubbing, or cyanosis. DATA: Chest x-ray, September 15, without infiltrate. Chest CT showed mild emphysema. Chest CTA, September 17, showed no evidence of a pulmona
== END 2019-09-19 13:40 | disposition home or self-care (01) | DRG 192 ==
LOC: ANHED 16:42 → ANH3MED 17:33
PROVIDERS: Internal Medicine; Admitting Provider Family Medicine; Emergency Provider Emergency Medicine; PCP Family Medicine; Visit Provider Family Medicine
DX: J43.9 Emphysema, unspecified (principal); E87.6 Hypokalemia; E11.9 Type 2 diabetes mellitus without complications; Z79.4 Long term (current) use of insulin; Z96.41 Presence of insulin pump (external) (internal); Z23 Encounter for immunization; I10 Essential (primary) hypertension; Z86.73 Personal history of transient ischemic attack (TIA), and cerebral infarction without residual deficits; K21.9 Gastro-esophageal reflux disease without esophagitis; E78.5 Hyperlipidemia, unspecified; E03.9 Hypothyroidism, unspecified; Z87.891 Personal history of nicotine dependence; R00.0 Tachycardia, unspecified; G47.33 Obstructive sleep apnea (adult) (pediatric); F41.8 Other specified anxiety disorders; I25.10 Atherosclerotic heart disease of native coronary artery without angina pectoris
CPT/HCPCS: 36415; 36600; 71046; 71260; 71275; 80048; 80053; 82805; 82948; 84484; 85025; 85027; 85380; 85610; 85730; 87804; 90471; 90686; 93005; 94618; 94640; 99291; A9270; G0008; J1650; J1815; J2920; J2930; Q9967

== ENCOUNTER 2020-01-19 08:30 | Outpatient (CLI) | payer OTHER, SELFPAY ==
--- NOTE | 2020-01-19 19:40 | WPDSIXMINUTE ---
Six Minute Walk Six Minute Walk: DOS: 01/19/2020 REQUESTING: Chad Ortega NP REASON FOR TESTING: shortness of breath SIX MINUTE WALK This test was conducted per ATS guidelines. The initial saturation was 93%, and the pulse was 91. The patient walked for 6 minutes without stopping, completing 900 feet / 274 meters. Saturation varied from 89% to 96%. The pulse ranged from 91 to 122 beats per minute. IMPRESSION: Mild desaturation without rangel hypoxemia. Distance walked is less than expected for age. No supplemental oxygen is indicated with exertion.
--- NOTE | 2020-01-19 19:46 | WPDPFTINT ---
PFT Interpretation PFT Interpretation: DOS: 01/19/2020 REQUESTING: Chad Ortega NP REASON FOR TESTING: shortness of breath PULMONARY FUNCTION TESTS The results are reproducible. Tech notes indicate that the patient is a smoker. Spirometry: FEV1 is 109%. FVC is 97%, and FEV1% is 84%, all normal. Bronchodilator was given without significant change. Lung volumes: TLC 96%, normal. RV is 89%, normal. Normal airway resistance. Diffusion: DLCO is 67%, mildly decreased. Flow volume loop: Normal. IMPRESSION: Normal spirometry and lung volumes Mild decrease in diffusion. Isolated decrease in diffusion can be seen in smoking, anemia, early ILD, collagen vascular disease with pulmonary vascular involvement, and chronic thromboembolic disease. Niox is 22 ppb, upper limits of normal range. No increase in airway inflammation. Lizy Truong MD
== END 2020-01-19 08:31 | disposition home or self-care (01) ==
PROVIDERS: PCP Family Medicine; Visit Provider Nurse Practitioner Family
DX: J44.9 Chronic obstructive pulmonary disease, unspecified (principal)
CPT/HCPCS: 94060; 94618; 94726; 94729; 95012

== ENCOUNTER 2020-05-15 12:33 | Outpatient (CLI) | payer OTHER, SELFPAY ==
--- NOTE | ~2020-05-15 | XR_ITS ---
XR chest 2V DATE: 05/15/2020 13:24 INDICATION: Shortness of breath. Back pain. TECHNIQUE: PA and lateral views COMPARISON: 09/17/2019 CTA chest 09/15/2021 view chest FINDINGS: Normal heart size. Aortic arch calcification. No hilar or mediastinal enlargement. No pulmonary infiltrate or consolidation, pleural effusion or pulmonary vascular congestion or pneumo thorax. IMPRESSION: No active cardiopulmonary disease Aortic calcification Reviewed, dictated and finalized at location B.
== END 2020-05-15 12:34 | disposition home or self-care (01) ==
PROVIDERS: PCP Family Medicine; Visit Provider Nurse Practitioner Family
DX: R06.02 Shortness of breath (principal); I70.0 Atherosclerosis of aorta
CPT/HCPCS: 71046

== ENCOUNTER 2020-06-05 08:20 | Outpatient (CLI) | payer OTHER, SELFPAY ==
--- NOTE | 2020-06-05 | EST_ITS ---
Patient Info Name: Susan Stroud Age: 54 years : 1965 Gender: Female Ht: 63 in Wt: 213 lbs BSA: 2.12 m2 Exam Date: 06/05/2020 10:21 AM Exam Location: [facility] Stress Patient Status: Outpatient Admit Date: 06/05/2020 Staff Ordering Physician: Lizy Truong MD Attending Provider: Lizy Truong MD Exercise Technologist: Lilian Robertson RDCS Exercise Physician: Alonso Naik DO Exam Type: CA stress omari w NM Study Info Indications R06.02 - Shortness of breath R07.9 - Chest pain, unspecified A regadenoson stress test was performed. Summary 1. 1. Negative lexiscan stress test for ischemic ST changes by ECG criteria. 2. 2. Stable hemodynamics throughout the test. 3. 3. Nuclear scan to follow and will be reported separately. Please correlate with it. 4. 4. Patient informed of the above results. Protocol: Lexiscan Stress ECG Details Stage: REST Duration (min): 7 min : 7 sec HR (bpm): 93 SBP (mmHg): 142 DBP (mmHg): 90 Stage: REST Duration (min): 15 min : 21 sec HR (bpm): 90 SBP (mmHg): 142 DBP (mmHg): 90 Stage: STAGE 1 Duration (min): 0 min : 59 sec HR (bpm): 107 SBP (mmHg): 130 DBP (mmHg): 81 Stage: RECOVERY Duration (min): 1 min : 0 sec HR (bpm): 117 SBP (mmHg): 130 DBP (mmHg): 81 Stage: RECOVERY Duration (min): 2 min : 0 sec HR (bpm): 111 SBP (mmHg): 130 DBP (mmHg): 81 Stage: RECOVERY Duration (min): 3 min : 0 sec HR (bpm): 108 SBP (mmHg): 140 DBP (mmHg): 79 Stage: RECOVERY Duration (min): 4 min : 0 sec HR (bpm): 98 SBP (mmHg): 140 DBP (mmHg): 79 Stage: RECOVERY Duration (min): 5 min : 0 sec HR (bpm): 102 SBP (mmHg): 140 DBP (mmHg): 79 Stage: RECOVERY Duration (min): 5 min : 9 sec HR (bpm): 101 SBP (mmHg): 140 DBP (mmHg): 79 Rest HR: 90 bpm Peak HR: 121 bpm Rest Sys BP: 142 mmHg Peak Sys BP: 140 mmHg Max Pred HR: 168 bpm % Max Pred HR: 72 % Target HR: 143 bpm Max RPP: 16,940 bpm*mmHg Termination Reason: Completed protocol Cardiac Symptoms: Shortness of breath Total Time: 1 min : 0 sec Rest Merino BP: 90 mmHg Peak Merino BP: 79 mmHg Total Dose: 0.4 mg Resting ECG Sinus rhythm. Stress ECG No ST changes. Arrhythmias None. Report Signatures
--- NOTE | ~2020-06-05 | NM_ITS ---
EXAMINATION: NM omari stress w perfusion DATE: 06/05/2020 13:55 INDICATION: Chest pain. Shortness of breath. TECHNIQUE: Rest images were obtained following intravenous administration of 10.6 mCi Tc99m tetrofosm in (Myoview). The patient was infused intravenously with Lexiscan (regadenoson). Then, 31.2 mCi Tc99m tetrofosmin (Myoview) was administered intravenously, and stress images were obtained. Data was juarez nstructed into short axis and horizontal and vertical long axis SPECT images. Gated SPECT images were also obtained. COMPARISON: Myocardial perfusion imaging 01/04/2009 FINDINGS: There is no definite reversible or fixed perfusion abnormality to suggest ischemia or infar ction. There is no segmental wall motion abnormality. Left ventricular ejection fraction measures > 70%. IMPRESSION: 1. No definite ischemia or infarct. 2. Normal left ventricular ejection fraction measuring >70%. Reviewed, dictated and finalized at location A.
== END 2020-06-05 08:21 | disposition home or self-care (01) ==
PROVIDERS: PCP Family Medicine; Visit Provider Internal Medicine Critical Care Medicine
DX: R07.9 Chest pain, unspecified (principal); R06.02 Shortness of breath
CPT/HCPCS: 78452; 93017; A9502; J2785

== ENCOUNTER 2020-06-20 07:59 | Outpatient (CLI) | payer OTHER, SELFPAY ==
--- NOTE | 2020-07-10 15:01 | WPDHOMESLEEP ---
Sleep Study - Home Unattended Date of Study: 06/20/20 Ordering Provider: Chad Ortega APRN Interpreting Physician: Lizy Truong MD Home Sleep Study Type: Apnea Link Air Height: 1.6 m Weight: 97.522 kg Body Mass Index: 38.0 [place]: 16 Reason for Sleep Study Excessive sleepiness, history of MONISHA Basic Sleep Study 09/04/2005 : Obstructive sleep apnea, severity not reported CPAP titration 10/10/2005 - incomplete titration at CPAP 16 cm; autoPAP recommended Home Sleep Test 05/14/2018 - AHI 11.4, heavy snoring, desaturation to 76% Basic sleep study 08/09/2019 - AHI 6.9; in non-supine REM AHI 24.9, lowest saturation 80%. Limb movement index 235. Sleep History Susan Stroud is a 54 year-old female with a history of sleep apnea years ago. She use CPAP but has not used it for about 10 years. She has progressive excessive daytime sleepiness. Her snoring wakes her. She can't stay asleep and she feels terrible on waking. She wakes up multiple times throughout the night. She occasionally snores. She occasionally awakens at night with heartburn, belching or coughing. She frequently awakens from sleep feeling short of breath, and frequently has breathing problems at night observed by others. She rarely sweats excessively at night. She occasionally notices her heart pounding or beating irregularly at night. She frequently falls asleep during the day. She never falls asleep involuntarily or while driving. She rarely has loss of muscle tone with strong emotion. She rarely has daytime difficulties due to excessive sleepiness. She does not feel paralyzed on waking or falling asleep. She does not have vivid dreamlike scenes upon awakening or falling asleep. She is never afraid to go to sleep. She does not have nightmares, occasionally recalls her dreams. She frequently has racing thoughts, feelings of sadness, depression and anxiety. She frequently has muscular tension. She occasionally notices parts of her body jerking. She rarely kicks at night. She occasionally has crawling and aching feelings in her legs and leg pain during the night. She does not have morning jaw pain and does not grind her teeth during sleep. She occasionally has bothered by pain during the day and is awakened by pain during the night. She frequently wakes up feeling stiff in the morning occasionally with sore or achy muscles, rarely with pain in the neck and spine. She has fatigue, memory problems, depression, headaches. Normal bedtime is 9:00 p.m. taking 30 minutes to fall asleep, typically waking 4-5 times at night for 10 minutes. While awake she will go to the bathroom, reposition and go back to sleep. She wakes at 5:45 a.m.. Weekend schedule shows that she stays awake until 11:00 p.m. and she sleeps until 10 or 11:00 a.m., a getting recovery sleep. She does not work on the weekends. She sometimes takes naps in the afternoon or evening. A short nap is not refreshing. She is usually drowsy in the morning for 3 hours or longer. She rarely wakes up feeling refreshed. She rarely has morning headaches. Habits: She quit tobacco over 10 years ago. She has 1 caffeine drink in the morning. She has 1 alcoholic beverage per week. [facility] Past Medical History Medical History Anemia Anxiety COPD with emphysema Coronary artery disease cardiac catheterization 2010 demonstrated mild nonocclusive coronary artery disease Depression Diabetes GERD (gastroesophageal reflux disease) Hyperlipidemia Hypertension Hypothyroid Obesity (BMI 30-39.9) Obstructive sleep apnea TIA (transient ischemic attack) Surgical History Surgical History History of cardiac cath History of cardiac radiofrequency ablation due to paroxysmal atrial tachycardia in 2000 Family History Family History Mother History of blood clots Con
[2020-07-10 16:58] VITALS: BMI 38.0
== END 2020-06-20 08:00 | disposition home or self-care (01) ==
LOC: ANHCSM 07:59
PROVIDERS: PCP Family Medicine; Visit Provider Nurse Practitioner Family
DX: G47.33 Obstructive sleep apnea (adult) (pediatric) (principal)
CPT/HCPCS: 95806

== ENCOUNTER 2020-07-28 12:29 | Emergency (ER) | payer OTHER, SELFPAY ==
[2020-07-28 12:42] VITALS: BP 143/55; PULSE 86; RESP 17; TEMP 36.8; O2SAT 97
[2020-07-28 13:02] LABS: Basophils Percent Auto 0.4 % (0.2-1.2); Eosinophils Absolute Auto 0.3 K/mm3 (0-0.3); Eosinophils Percent Auto 3.5 % (0-4.4); Hematocrit 34.2 % (37.0-47.0); Immature Granulocyte Absolute 0.02 K/mm3 (0.00-0.031); Immature Granulocyte Percent A 0.2 % (0-0.5); Lymphocytes Absolute Auto 4.01 K/mm3 (0.9-3.2); Lymphocytes Percent Auto 42.5 % (18.3-44.2); Mean Corpuscular HGB Conc 32.2 g/dl (32-36); Mean Corpuscular Volume 74.5 fl (80-100); Mean Platelet Volume 9.3 fl (7.4-10.4); Monocytes Percent Auto 10.5 % (2.6-8.5); Neutrophils Absolute Auto 4.1 K/mm3 (1.3-6.7); Neutrophils Percent Auto 42.9 % (45.5-73.1); Platelet Count Result 285 k/mm3 (150-375); Red Blood Count 4.59 M/mm3 (4.2-5.4); Red Cell Distribution Width 17.5 % (11.5-14.5); White Blood Count 9.4 K/mm3 (4.5-10.0)
--- NOTE | 2020-07-28 13:58 | ED.FEMALEGU ---
HPI - Female Genitourinary General Chief complaint: Vaginal Bleeding Stated complaint: vaginal bleeding Time Seen by Provider: 07/28/20 13:42 Source: patient and family Mode of arrival: ambulatory Limitations: no limitations History of Present Illness HPI Narrative: 54 years old white female presents with heavy vaginal bleeding started 4 days ago. Patient patient had last menstrual. May 2019. Patient complaining of abdominal cramps. Denies any fever, chills, nausea, vomiting. Was seen by her WOOD PATTERNMAKER yesterday who started her on ibuprofen 800 mg every 8 hours as needed. Breathing got worse today. Currently complaining of cramps and headache. Sister had history of breast cancer Related Data Home Medications Medication Instructions Recorded Confirmed alprazolam 2 mg PO HS 09/15/19 05/15/20 aspirin 325 mg PO DAILY 09/15/19 05/15/20 escitalopram oxalate 10 mg PO DAILY 09/15/19 05/15/20 indapamide 2.5 mg PO DAILY 09/15/19 05/15/20 losartan 100 mg PO DAILY 09/15/19 05/15/20 pantoprazole 40 mg PO DAILY 09/15/19 05/15/20 subcutaneous insulin pump #1 each 01/21/20 05/15/20 blood sugar diagnostic #10 each 05/01/20 05/15/20 Allergies Allergy/AdvReac Type Severity Reaction Status Date / Time meperidine Allergy Severe allergic Verified 07/28/20 12:46 shock Review of Systems Review of Systems: Narrative: CONSTITUTIONAL: Denies fever, chills, or sweats. EYES: Denies visual changes, redness, or discharge. ENT: Denies rhinorrhea, congestion, sore throat, or otalgia. CARDIOVASCULAR: Denies chest pain, palpitations, or edema. RESPIRATORY: Denies cough or dyspnea. GASTROINTESTINAL: Denies abdominal pain, nausea, vomiting, or diarrhea. GENITOURINARY: Denies dysuria or hematuria. SKIN: Denies rash or itching. MUSCULOSKELETAL: Denies back pain, joint pain, or myalgia. NEUROLOGIC: Denies headache, numbness, or weakness. PSYCHIATRIC: Denies anxiety or depression. [facility] Past Medical History Medical History (Updated 07/28/20 @ 15:44 by Felicitas Denson MD) Anemia Anxiety COPD with emphysema Coronary artery disease cardiac catheterization 2010 demonstrated mild nonocclusive coronary artery disease Depression Diabetes GERD (gastroesophageal reflux disease) Hyperlipidemia Hypertension Hypothyroid Obesity (BMI 30-39.9) Obstructive sleep apnea TIA (transient ischemic attack) Surgical History Surgical History History of cardiac cath History of cardiac radiofrequency ablation due to paroxysmal atrial tachycardia in 2000 Family History Family History Mother History of blood clots Congestive heart failure Diabetes mellitus Father Congestive heart failure Diabetes mellitus Prostate carcinoma Bone cancer Sibling Diabetes mellitus Breast cancer sister Social History Social History Social History: Code status: Full code. Patient does not have advanced directives. Primary care physician: Dr. Howard Gallego Smoking packs per day: 1 Smoking cigarettes per day: 20.0 Years smoked: 25 Smoking pack-years: 25.00 Smoking status: Former smoker Tobacco type: cigarettes Additional smoking assessment comments: Quit in approximately 2008. Alcohol intake: current Substance use: never Additional living arrangements comments: She lives in [place] with her . 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 Gender identity (if verbalized by the patient): Female Spiritual care concerns: Yes (Pent[employer]ostal) Agree to blood products: Yes Exam Narrative: Exam Narrative: General appearance: Well-developed, well-nourished Skin: Normal color Chest and respiratory: Airway patent, no respiratory distress, no accessory muscle use Heart: Regular rate/rhythm
[2020-07-28] MEDS: MORPHINE SULFATE (*CRX) 4 MG/ML INJ IV PUSH (14:28)
[2020-07-28] MEDS: SODIUM CHLORIDE 0.9% IV 1,000 ML 999 ML IV CONT (14:29)
[2020-07-28] MEDS: ONDANSETRON INJ 4 MG/2 ML VIAL IV PUSH (14:29)
[2020-07-28 16:21] VITALS: BP 143/72; PULSE 88; RESP 16; TEMP 36.6; O2SAT 100
== END 2020-07-28 16:22 | disposition home or self-care (01) ==
PROVIDERS: Emergency Medicine; Emergency Provider Emergency Medicine; PCP Family Medicine
DX: N93.8 Other specified abnormal uterine and vaginal bleeding (principal); Z87.891 Personal history of nicotine dependence; J44.9 Chronic obstructive pulmonary disease, unspecified; I25.10 Atherosclerotic heart disease of native coronary artery without angina pectoris; E11.9 Type 2 diabetes mellitus without complications; K21.9 Gastro-esophageal reflux disease without esophagitis; E78.5 Hyperlipidemia, unspecified; I10 Essential (primary) hypertension; E03.9 Hypothyroidism, unspecified; G47.33 Obstructive sleep apnea (adult) (pediatric); Z86.73 Personal history of transient ischemic attack (TIA), and cerebral infarction without residual deficits; E66.9 Obesity, unspecified; Z68.39 Body mass index [BMI] 39.0-39.9, adult; F32.9 Major depressive disorder, single episode, unspecified; F41.9 Anxiety disorder, unspecified
CPT/HCPCS: 36415; 85025; 96361; 96374; 96375; 99284; J2270; J2405; J7030

== ENCOUNTER → 2020-08-15 10:14 | Outpatient (CLI) | payer OTHER, SELFPAY ==
--- NOTE | ~2020-08-15 | MM_ITS ---
EXAMINATION: MM screening [place] BI w marci HISTORY: Screening TECHNIQUE: Craniocaudal and mediolateral oblique 3-D tomosynthesis images were obtained and synthetic 2-D images were generated. CAD analysis was submitted and interpreted. COMPARISON: No prior mammogram is available for comparison at this institution. BREAST PARENCHYMAL COMPOSITION: The breasts are heterogeneously dense, which may obscure small masses . FINDINGS: There is no evidence of suspicious mass, calcification, or architectural distortion to sugg est malignancy in either breast. There has been no suspicious interval change. IMPRESSION: 1. No mammographic evidence of malignancy. 2. Recommend routine screening mammography in one year. BI-RADS Category 1: Negative Reviewed, dictated and finalized at location A. [facility]
== END ==
PROVIDERS: Visit Provider Obstetrics & Gynecology Gynecology
DX: Z12.31 Encounter for screening mammogram for malignant neoplasm of breast (principal)
CPT/HCPCS: 77063; 77067

== ENCOUNTER 2020-08-23 07:37 | Outpatient (CLI) | payer OTHER, SELFPAY ==
--- NOTE | 2020-08-23 07:41 | ECG_ITS ---
Measurements Intervals [place] Rate: 86 P: 36 MO: 173 QRS: 11 QRSD: 106 T: 9 QT: 356 QTc: 427 Interpretive Statements SINUS RHYTHM BORDERLINE R WAVE PROGRESSION, ANTERIOR LEADS MINIMAL Q WAVES- INFERIOR LEADS BORDERLINE T WAVE ABNORMALITY- INFERIOR LEADS BASELINE ARTIFACT- I, II, III, AVR, AVL, AVF BORDERLINE ECG Electronically Signed On 08-23-2020 8:22:11 HUMAN SERVICES ASSISTANT by Alonso Naik D.O.
[2020-08-23 08:23] LABS: Anion Gap 8 mmol/L (8-16); Blood Urea Nitrogen 10 mg/dL (7-17); Calcium 9.4 mg/dL (8.4-10.2); Carbon Dioxide 28 mmol/L (22-30); Chloride 102 mmol/L (98-107); Estimated Glomerular Filt Rate > 60; Glucose 146 mg/dL (65-105); Potassium 3.8 mmol/L (3.4-5.0); Sodium 138 mmol/L (137-145)
== END 2020-08-23 07:38 | disposition home or self-care (01) ==
PROVIDERS: Anesthesiology; PCP Physician Assistant; Visit Provider Obstetrics & Gynecology Gynecology
DX: E11.65 Type 2 diabetes mellitus with hyperglycemia (principal); Z79.4 Long term (current) use of insulin; Z01.818 Encounter for other preprocedural examination; R94.31 Abnormal electrocardiogram [ECG] [EKG]
CPT/HCPCS: 36415; 80048; 93005

== ENCOUNTER 2020-08-25 02:03 | Outpatient (CLI) | payer OTHER, SELFPAY ==
[2020-08-25 17:23] LABS: SARS-CoV-2 RNA PCR Negative
== END 2020-08-25 02:04 | disposition home or self-care (01) ==
LOC: ANHCOVIDDT 02:03
PROVIDERS: PCP Physician Assistant; Visit Provider Obstetrics & Gynecology Gynecology
DX: Z01.812 Encounter for preprocedural laboratory examination (principal); Z20.822 Contact with and (suspected) exposure to COVID-19
CPT/HCPCS: C9803; U0003

== ENCOUNTER 2020-08-28 01:41 | Day surgery (SDC) | payer OTHER, SELFPAY ==
[2020-08-17 15:33] VITALS: BMI 38.5
[2020-08-28 06:09] VITALS: BP 140/77; PULSE 91; RESP 14; TEMP 37.2; O2SAT 95
--- NOTE | 2020-08-28 07:03 | WPDANESEPPF ---
Anes - Initial Pre Proc Eval Procedure: Operation Date: 08/28/20 09:30 Proposed Procedures p Hysteroscopy Dilation and Curettage - Migdalia Collazo MD Date/Time: 08/28/20 07:03 Surgeon: Migdalia Collazo MD Pre Op Diagnosis: Post Menopausal Bleeding Patient Data Age: 54 Gender: F Height: 5 ft 3 in Weight: 98.63 kg Allergies Allergy/AdvReac Type Severity Reaction Status Date / Time meperidine Allergy Severe allergic Verified 08/28/20 07:23 shock Home Medications Medication Instructions Recorded Confirmed Type alprazolam 2 mg PO BID 09/15/19 08/28/20 History escitalopram oxalate 10 mg PO DAILY 09/15/19 08/28/20 History indapamide 2.5 mg PO DAILY 09/15/19 08/28/20 History losartan 100 mg PO DAILY 09/15/19 08/28/20 History pantoprazole 40 mg PO DAILY 09/15/19 08/28/20 History metoprolol tartrate 12.5 mg PO Q12HR 30 Days #30 tablet 09/19/19 08/28/20 Rx simvastatin 20 mg PO QAM #60 tablet 09/19/19 08/28/20 Rx subcutaneous insulin pump #1 each 01/21/20 08/16/20 History albuterol sulfate 90 mcg/actuation 2 inhalation INHALATION Q4-6H PRN 01/26/20 08/28/20 Rx aerosol inhaler #8.5 gm fluticasone fur. 100 mcg-umeclid 1 inh INHALATION Q24H 30 Days #60 03/31/20 08/28/20 Rx 62.5 mcg-vilant 25 mcg each inhalat.powder blood sugar diagnostic #10 each 05/01/20 08/16/20 History insulin lispro 100 unit/mL 180 - 200 unit CONTINUOUS 08/01/20 08/28/20 Rx subcutaneous solution SUBCUTANEOUS INFUSION DAILY 90 Days #180 ml metformin 1,000 mg tablet 1,000 mg PO BID 90 Days #180 tablet 08/01/20 08/28/20 Rx ferrous sulfate 325 mg (65 mg 325 mg PO DAILY 08/03/20 08/28/20 History iron) tablet ibuprofen 200 mg capsule 800 mg PO Q6H PRN 08/03/20 08/28/20 History Trulicity 1.5 mg/0.5 mL 1.5 mg SUB-Q WEEKLY 90 Days #6 ml 08/16/20 08/28/20 Rx subcutaneous pen injector NS cholecalciferol (vitamin D3) 10 mcg PO DAILY 08/17/20 08/28/20 History [Vitamin D3] zinc 100 mg PO DAILY 08/17/20 08/28/20 History Patient hx anesthesia problems: none Family hx anesthesia problems: none PMFSH Past Medical History Medical History Anemia Anxiety COPD with emphysema Coronary artery disease cardiac catheterization 2010 demonstrated mild nonocclusive coronary artery disease Depression Diabetes GERD (gastroesophageal reflux disease) Hyperlipidemia Hypertension Hypothyroid Obesity (BMI 30-39.9) Obstructive sleep apnea TIA (transient ischemic attack) Type 2 diabetes mellitus with hyperglycemia, with long-term current use of insulin Surgical History Surgical History History of cardiac cath History of cardiac radiofrequency ablation due to paroxysmal atrial tachycardia in 2000 Family History Family History Mother History of blood clots Congestive heart failure Diabetes mellitus Father Congestive heart failure Diabetes mellitus Prostate carcinoma Bone cancer Sibling Diabetes mellitus Breast cancer sister Social History Social History Social History: Code status: Full code. Patient does not have advanced directives. Smoking packs per day: 1 Smoking cigarettes per day: 20.0 Years smoked: 25 Smoking pack-years: 25.00 Smoking status: Former smoker Tobacco type: cigarettes Second hand tobacco smoke exposure: No Smoking end date: 08/19/01 Additional smoking assessment comments: 20 years smoking 1ppd Alcohol intake: current Substance use: current Substance use type: does not use Other substance usage details: gummie marijuana at hs Living arrangements: with family Additional living arrangements comments: She lives in [place] with her . Additional occupation/education comments: The patient is a clinical social work aide for 6
[2020-08-28] MEDS: ACETAMINOPHEN 500 MG TABLET 1000 MG PO (07:37)
--- NOTE | 2020-08-28 07:45 | PM.HPGS ---
History of Present Illness History of Present Illness Consent: Risks, benefits, and alternatives have been discussed and questions answered. Patient agrees to proceed with procedure. Chief complaint: Post Menopausal Bleeding Narrative: Susan Stroud is a 54 year old female with onset of postmenopausal bleeding 08/06. Stopped cycles 06/05. Recommend to proceed with evaluation. Option of u/s vs hysteroscopy discussed. Plan to proceed with hysteroscopy and D&C. Risks of infection, bleeding, perforation, and possible pathology discussed. Agrees to proceed. [facility] Past Medical History Medical History (Updated 08/28/20 @ 07:50 by Migdalia Collazo MD) Anemia Anxiety COPD with emphysema Coronary artery disease cardiac catheterization 2010 demonstrated mild nonocclusive coronary artery disease Depression Diabetes GERD (gastroesophageal reflux disease) Hyperlipidemia Hypertension Hypothyroid (normal spontaneous vaginal delivery) x 3 Obesity (BMI 30-39.9) Obstructive sleep apnea Spontaneous x 2 TIA (transient ischemic attack) Type 2 diabetes mellitus with hyperglycemia, with long-term current use of insulin Surgical History Surgical History History of cardiac cath History of cardiac radiofrequency ablation due to paroxysmal atrial tachycardia in 2000 Family History Family History Mother History of blood clots Congestive heart failure Diabetes mellitus Father Congestive heart failure Diabetes mellitus Prostate carcinoma Bone cancer Sibling Diabetes mellitus Breast cancer sister Social History Social History Social History: Code status: Full code. Patient does not have advanced directives. Smoking packs per day: 1 Smoking cigarettes per day: 20.0 Years smoked: 25 Smoking pack-years: 25.00 Smoking status: Former smoker Tobacco type: cigarettes Second hand tobacco smoke exposure: No Smoking end date: 08/19/01 Additional smoking assessment comments: 20 years smoking 1ppd Alcohol intake: current Substance use: current Substance use type: does not use Other substance usage details: gummie marijuana at hs Living arrangements: with family Additional living arrangements comments: She lives in [place] with her . 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 Gender identity (if verbalized by the patient): Female Spiritual care concerns: No Agree to blood products: Yes Meds Home Medications and Allergies Home Medications Medication Instructions Recorded Confirmed Type alprazolam 2 mg PO BID 09/15/19 08/28/20 History escitalopram oxalate 10 mg PO DAILY 09/15/19 08/28/20 History indapamide 2.5 mg PO DAILY 09/15/19 08/28/20 History losartan 100 mg PO DAILY 09/15/19 08/28/20 History pantoprazole 40 mg PO DAILY 09/15/19 08/28/20 History metoprolol tartrate 12.5 mg PO Q12HR 30 Days #30 tablet 09/19/19 08/28/20 Rx simvastatin 20 mg PO QAM #60 tablet 09/19/19 08/28/20 Rx subcutaneous insulin pump #1 each 01/21/20 08/16/20 History albuterol sulfate 90 mcg/actuation 2 inhalation INHALATION Q4-6H PRN 01/26/20 08/28/20 Rx aerosol inhaler #8.5 gm fluticasone fur. 100 mcg-umeclid 1 inh INHALATION Q24H 30 Days #60 03/31/20 08/28/20 Rx 62.5 mcg-vilant 25 mcg each inhalat.powder blood sugar diagnostic #10 each 05/01/20 08/16/20 History insulin lispro 100 unit/mL 180 - 200 unit CONTINUOUS 08/01/20 08/28/20 Rx subcutaneous solution SUBCUTANEOUS INFUSION DAILY 90 Days #180 ml metformin 1,000 mg tablet 1,000 mg PO BID 90 Days #180 tablet 08/01/20 08/28/20 Rx ferrous sulfate 325 mg (65 mg 325 mg PO DAILY 08/03/20 08/28/20 History iron) tablet ibuprofen 200 mg capsule 800 mg PO Q6H PRN 1
--- NOTE | 2020-08-28 07:52 | WPDHPUPDATE1 ---
History and Physical Update Update Date/Time: 08/28/20 07:52 History and Physical has been reviewed, including an updated exam of the patient. There are NO changes in the patient's condition. Risks, benefits, and alternatives have been discussed and questions answered. Patient agrees to proceed with procedure.
[2020-08-28] MEDS: LACTATED RINGERS 1,000 ML 30 ML IV CONT (08:01)
[2020-08-28 08:04] LABS: Glucose Point of Care 221 (65-105)
--- NOTE | 2020-08-28 08:06 | SUR.PREOP ---
pt has insulin pump and adjusted with accucheck results.0800
[2020-08-28] MEDS: KETOROLAC 30 MG/ML VIAL (*BKC) IV PUSH (08:53)
--- NOTE | 2020-08-28 08:58 | PM.PROC ---
Procedure Note - Detailed Date of procedure: 08/28/20 Pre-op diagnosis: Post Menopausal Bleeding Post-op diagnosis: same Procedure performed: D&C hysteroscopy Description of procedure: The patient is taken to the operating room and placed under anesthesia in the dorsal lithotomy position. She was prepped and draped in the usual sterile fashion. Pattison speculum was placed in the vagina and the cervix is grasped on the anterior lip with a tenaculum. The cervix is injected with 1% lidocaine in each quadrant. The uterus is sounded to 7cm. The cervix is serially dilated with Hegar. The diagnostic hysteroscope was placed with no abnormalities noted. The hysteroscope was removed. Medium sharp curette is used to curette the endometrium until a good uterine cry noted in all areas. All instruments are then removed and the patient awakened from anesthesia. Sponge, instrument, and needle counts are correct per the OR staff. Anesthesia: MAC and local Surgeon: Migdalia Collazo MD Estimated blood loss (mL): 5 Drains: No Packing: No Pathology: yes (endometrial curettings) Complications: No immediate complications Condition: stable Disposition: PACU Findings: Uterus 7 cm; grossly atrophic appearing
[2020-08-28 09:03] VITALS: BP 114/69; PULSE 88; RESP 14; O2SAT 95
[2020-08-28 09:13] LABS: Glucose Point of Care 180 (65-105)
[2020-08-28 09:30] VITALS: BP 144/90; PULSE 80; RESP 14; O2SAT 95
[2020-08-28 09:50] VITALS: BP 135/83; PULSE 81; RESP 14
== END 2020-08-28 10:01 | disposition home or self-care (01) ==
PROVIDERS: PCP Physician Assistant; Visit Provider Obstetrics & Gynecology Gynecology
PROC: 0U5B8ZZ Destruction of Endometrium, Via Natural or Artificial Opening Endoscopic (ICD-10-PCS; CPT 58563; principal; 2020-08-28 09:30)
DX: N95.0 Postmenopausal bleeding (principal); F41.9 Anxiety disorder, unspecified; E11.9 Type 2 diabetes mellitus without complications; G47.33 Obstructive sleep apnea (adult) (pediatric); I25.10 Atherosclerotic heart disease of native coronary artery without angina pectoris; D64.9 Anemia, unspecified; E78.5 Hyperlipidemia, unspecified; E03.9 Hypothyroidism, unspecified; Z79.84 Long term (current) use of oral hypoglycemic drugs; Z79.4 Long term (current) use of insulin; Z79.51 Long term (current) use of inhaled steroids; Z87.891 Personal history of nicotine dependence; E66.9 Obesity, unspecified; Z68.38 Body mass index [BMI] 38.0-38.9, adult; F12.90 Cannabis use, unspecified, uncomplicated; Z86.73 Personal history of transient ischemic attack (TIA), and cerebral infarction without residual deficits
CPT/HCPCS: 58558; 36415; 80048; 88305; 93005; A9270; C9803; J1885; J2250; J2405; J2704; J3010; J7030; J7120; U0003

== ENCOUNTER 2020-09-04 06:40 | Outpatient (CLI) | payer OTHER, SELFPAY ==
--- NOTE | ~2020-09-04 | MR_ITS ---
EXAMINATION: MR brain/brain stem wo/w con DATE: 09/04/2020 07:52 INDICATION: Left-sided peripheral vision loss. TECHNIQUE: Magnetic resonance imaging (MRI) of the brain and brainstem was performed without and with 19 mL MultiHance intravenous contrast. Sequences included sagittal and axial T1-weighted FSE, axial diffusion-weighted FS EPI, axial T2*-weighted GRE, axial T2-weighted FLAIR Propeller, and axial T2-we ighted Propeller. Postcontrast sequences included axial, sagittal, and coronal T1-weighted FSE. Appar ent diffusion coefficient (ADC) maps were created. COMPARISON: Brain MRI 05/10/2019 FINDINGS: There are scattered areas of nonspecific increased T2-weighted signal intensity in the cere bral white matter. There is no intracranial hemorrhage, acute infarction, or abnormal intracranial ma ss lesion. The ventricles are normal in size. The orbits are normal. The paranasal sinuses are clear. The mastoid air cells are normal. IMPRESSION: 1. Stable mild nonspecific cerebral white matter disease, which likely represents chronic small vesse l ischemic disease. Reviewed, dictated and finalized at location B. TECHNICAL ARCHITECT IMPRESSION: 1. Stable mild nonspecific cerebral white matter disease, which likely represen ts chronic small vessel ischemic disease.
== END 2020-09-04 06:41 | disposition home or self-care (01) ==
PROVIDERS: PCP Physician Assistant; Visit Provider Physician Assistant
DX: H53.452 Other localized visual field defect, left eye (principal); R93.0 Abnormal findings on diagnostic imaging of skull and head, not elsewhere classified
CPT/HCPCS: 70553; A9577

== ENCOUNTER 2021-03-20 09:28 | Outpatient (CLI) | payer OTHER, SELFPAY ==
[2021-03-20 13:07] LABS: Alanine Aminotransferase 23 U/L (4-35); Albumin Level 4.3 g/dL (3.5-5.1); Alkaline Phosphatase 81 U/L (38-126); Anion Gap 12 mmol/L (8-16); Aspartate Amino Transferase 22 U/L (14-36); Bilirubin,Total 0.3 mg/dL (0.2-1.3); Blood Urea Nitrogen 21 mg/dL (7-17); Calcium 10.2 mg/dL (8.4-10.2); Carbon Dioxide 29 mmol/L (22-30); Chloride 98 mmol/L (98-107); Cholesterol 163 mg/dL (0-200); Estimated Glomerular Filt Rate > 60; Glucose 174 mg/dL (65-110); HDL Direct 47 mg/dL; Potassium 4.1 mmol/L (3.4-5.0); Sodium 139 mmol/L (137-145); Triglycerides 161 mg/dL (<150)
[2021-03-20 13:18] LABS: LDL Cholesterol Direct 86 mg/dL
[2021-03-20 16:59] LABS: Creatinine Urine 219.7 mg/dL
[2021-03-20 17:04] LABS: MALB Creatinine Ratio 22.9 mg/g (0-30); Microalbumin Urine Random 50.4 mg/L (0-16.7)
== END 2021-03-20 09:29 | disposition home or self-care (01) ==
LOC: ANHWCLAB 09:35
PROVIDERS: PCP Physician Assistant; Visit Provider Internal Medicine Endocrinology, Diabetes & Metabolism
DX: E11.65 Type 2 diabetes mellitus with hyperglycemia (principal); G47.33 Obstructive sleep apnea (adult) (pediatric); R00.0 Tachycardia, unspecified; R74.01 Elevation of levels of liver transaminase levels; Z79.4 Long term (current) use of insulin
CPT/HCPCS: 36415; 80053; 80061; 82043; 82607; 84443

== ENCOUNTER 2021-06-20 07:55 | Outpatient (CLI) | payer OTHER, SELFPAY ==
--- NOTE | 2021-07-09 14:03 | WPDSLEEPSTUD ---
Sleep Study Date of Study: 06/20/21 <Maine Cano, DO - Last Filed: 07/09/21 14:56> Ordering Provider: Chad Ortega APRN <Maine Cano, DO - Last Filed: 07/09/21 14:56> Interpreting Physician: Maine Cano DO <Maine Cano, DO - Last Filed: 07/09/21 14:56> Sleep Study Type: CPAP Titration <Maine Cano DO - Last Filed: 07/09/21 14:56> Height: 1.6 m <Maine Cano DO - Last Filed: 07/09/21 14:56> Weight: 101.151 kg <Maine Cano DO - Last Filed: 07/09/21 14:56> Body Mass Index: 39.4 <Maine Cano DO - Last Filed: 07/09/21 14:56> Neck Circumference (inches): 17 <Maine Cano DO - Last Filed: 07/09/21 14:56> [place]: 14 <Maine Cano DO - Last Filed: 07/09/21 14:56> Reason for Sleep Study Patient has unrefreshing sleep, daytime hypersomnia and morning headaches despite being compliant with PAP Therapy. <Maine Cano, DO - Last Filed: 07/09/21 14:56> Sleep History Susan Stroud is a 55 year-old female that had an HSAT on 06/20/2020 hat showed an AHI of 14 with a minimum oxygen desaturation of 78%. She was prescribed autoPAP 5-15 cm H2O. Despite being compliant with PAP Therapy, she is experiencing unrefreshing sleep, daytime hypersomnia and morning headaches. Compliance Data from 01/14/2021-04/13/2021: Days Used: 90/90 % > 4 hours: 100% Average Usage: 9 hours 50 minutes Pressure Settin-15 cm H2O 95th percentile settin.2 cm H2O Residual AHI: 0.8 I do not have an updated sleep history from the patient since she had her HSAT done on 06/20/2020. <Maine Cano DO - Last Filed: 07/09/21 14:56> [facility] Past Medical History Medical History: Medical History Anemia Anxiety COPD with emphysema Coronary artery disease cardiac catheterization 2010 demonstrated mild nonocclusive coronary artery disease Depression Diabetes GERD (gastroesophageal reflux disease) Hyperlipidemia Hypertension Hypothyroid (normal spontaneous vaginal delivery) x 3 Obesity (BMI 30-39.9) Obstructive sleep apnea Spontaneous x 2 TIA (transient ischemic attack) Type 2 diabetes mellitus with hyperglycemia, with long-term current use of insulin <Maine Cano DO - Last Filed: 07/09/21 14:56> Surgical History Surgical History: Surgical History History of cardiac cath History of cardiac radiofrequency ablation due to paroxysmal atrial tachycardia in 2000 <Maine Cano DO - Last Filed: 07/09/21 14:56> Family History Family History: Family History Mother History of blood clots Congestive heart failure Diabetes mellitus Father Congestive heart failure Diabetes mellitus Prostate carcinoma Bone cancer Sibling Diabetes mellitus Breast cancer sister <Maine Cano DO - Last Filed: 07/09/21 14:56> Social History Social History: Social History Social History: Code status: Full code. Patient does not have advanced directives. Smoking packs per day: 1 Smoking cigarettes per day: 20.0 Years smoked: 25 Smoking pack-years: 25.00 Smoking status: Former smoker Tobacco type: cigarettes Second hand tobacco smoke exposure: No Smoking end date: 08/19/01 Additional smoking assessment comments: 20 years smoking 1ppd Alcohol intake: current Alcohol use details: Rare alcohol use. Substance use: current Substance use type: does not use Other substance usage details: gummie marijuana at hs Additional living arrangements comments: She lives in [place] with her . Additional occupation/education comments: The patient is a lab aide for 6 gr
[2021-07-09 14:07] VITALS: BMI 39.4
== END 2021-06-21 07:10 | disposition home or self-care (01) ==
LOC: ANHCSM 08:04
PROVIDERS: PCP Physician Assistant; Visit Provider Nurse Practitioner Family
DX: G47.33 Obstructive sleep apnea (adult) (pediatric) (principal)
CPT/HCPCS: 95811